=== PATIENT | female | born 1970 | race African-American/Black ===

== ENCOUNTER 2025-04-17 02:30 | Emergency (ER) | payer OTHER ==
[~2025-04-17] VITALS: Ht 170.2 cm; Wt 100.0 kg
[2025-04-17 02:33] VITALS: O2SAT 97
[2025-04-17] MEDS: KETOROLAC 15MG/ML VIAL IM ONE (03:13)
[2025-04-17] MEDS: LIDOCAINE 5% PATCH TOP SCH (03:14)
[2025-04-17] MEDS ORDERED: NAPR-1176 MT (04:22)
[2025-04-17] MEDS ORDERED: LIDO-53 TP (04:22)
[2025-04-17] MEDS ORDERED: CYCL5TAB3 MT (04:22)
[2025-04-17 04:35] VITALS: BP 111/78; PULSE 67; RESP 16; TEMP 36.9; O2SAT 99
== END 2025-04-17 04:45 | disposition home or self-care (01) ==
LOC: ER 02:30
DX: S13.4XXA Sprain of ligaments of cervical spine, initial encounter (principal); M54.9 Dorsalgia, unspecified; J45.909 Unspecified asthma, uncomplicated; Z88.0 Allergy status to penicillin; V43.52XA Car driver injured in collision with other type car in traffic accident, initial encounter; Y92.410 Unspecified street and highway as the place of occurrence of the external cause; Y93.89 Activity, other specified; Y99.8 Other external cause status
CPT/HCPCS: 99283; 96372; J1885